=== PATIENT | female | born 1955 | race African-American/Black ===

== ENCOUNTER 2017-08-06 10:54 | Inpatient (IN) | payer MEDICARE, MEDICAID ==
[~2017-08-06] VITALS: Ht 175.3 cm; Wt 93.4 kg
[~2017-08-06 10:54] MED LIST: FOLI-43 PO; HYDR-2412 PO; INSU100C11 SQ; MIRT15TA PO; OMEP20CA4 PO; OXYC-662 PO; ZOLP5TAB8 PO; [UNRECOGNIZED DRUG - CODE] PR
[2017-08-06] MEDS ORDERED: SODIUM CHLORIDE 0.9% 10ML VIAL ONE (11:44)
[2017-08-06] MEDS ORDERED: IOHEXOL-300 100 ML BOTTLE ONE (11:44)
[2017-08-06] MEDS ORDERED: SODIUM CHLORIDE 0.9% 1,000 ML IV ONE (14:21)
[2017-08-06] MEDS ORDERED: FAMOTIDINE 20MG/2ML VIAL IV STA (14:21)
[2017-08-06] MEDS ORDERED: ONDANSETRON HCL 4MG/2ML VIAL IV STA (14:21)
[2017-08-06 14:42] LABS: HEMATOCRIT. 41.9 % (36.0-48.0); HEMOGLOBIN. 13.6 g/dL (12.0-16.0); MEAN CORPUSCULAR HEMOGLOBIN 27.1 pg (28.0-32.0); MEAN CORPUSCULAR VOLUME 83.7 fL (81.0-99.0); PLATELET 165 x1000/uL (130-400); RED BLOOD CELL COUNT 5.01 mill/uL (4.2-5.4); RED CELL DISTRIBUTION WIDTH 17.8 % (11.6-14.6)
[2017-08-06 14:48] LABS: CHLORIDE 106 mEq/L (98-107)
[2017-08-06 14:56] LABS: CARBON DIOXIDE 24 mEq/L (21-32)
[2017-08-06 14:58] LABS: CLARITY URINE CLOUDY (CLEAR); COLOR URINE DARK YELLOW (YELLOW); GLUCOSE URINE NEGATIVE (NEGATIVE); KETONES URINE TRACE (NEGATIVE); LEUKOCYTE ESTERASE URINE NEGATIVE (NEGATIVE); NITRITE URINE NEGATIVE (NEGATIVE); OCCULT BLOOD URINE NEGATIVE (NEGATIVE); PH URINE 5.5 (4.5-8.0); PROTEIN URINE 1+ (NEGATIVE); SPECIFIC GRAVITY URINE 1.029 (1.005-1.030)
[2017-08-06 15:23] LABS: PLATELET ESTIMATE NORMAL
[2017-08-06] MEDS ORDERED: PANTOPRAZOLE SODIUM 40 MG/VIAL IV ONE (22:00)
[2017-08-06 22:51] VITALS: BP 112/66
[2017-08-06 23:59] VITALS: BP 113/56
[2017-08-07] MEDS ORDERED: ACETAMINOPHEN 325MG TABLET PO PRN
[2017-08-07] MEDS ORDERED: ONDANSETRON HCL 4MG/2ML VIAL IV PRN
[2017-08-07] MEDS ORDERED: ZOLPIDEM TARTRATE 5MG TABLET PO PRN
[2017-08-07] MEDS ORDERED: DEXTROSE 50% WATER 50ML SYRINGE IV PRN (00:15)
[2017-08-07 04:00] VITALS: BP 122/61
[2017-08-07] MEDS: BLOOD SUGAR DIAGNOSTIC STRIP TEST SCH ×4 (06:49→21:00)
[2017-08-07] MEDS: INSULIN LISPRO 100 UNITS/ML SUBCUT SCH ×4 (06:49→21:00)
[2017-08-07 07:02] LABS: HEMATOCRIT. 38.9 % (36.0-48.0); HEMOGLOBIN. 12.6 g/dL (12.0-16.0); MEAN CORPUSCULAR HEMOGLOBIN 27.4 pg (28.0-32.0); MEAN CORPUSCULAR VOLUME 84.4 fL (81.0-99.0); MEAN PLATELET VOLUME 8.7 fl (7.4-10.4); PLATELET 163 x1000/uL (130-400); RED BLOOD CELL COUNT 4.61 mill/uL (4.2-5.4); RED CELL DISTRIBUTION WIDTH 17.9 % (11.6-14.6)
[2017-08-07 07:56] LABS: CARBON DIOXIDE 25 mEq/L (21-32); CHLORIDE 107 mEq/L (98-107); HDL CHOLESTEROL 37 mg/dL (40-59); LDL CHOLESTEROL 71 mg/dL (5-100); PHOSPHORUS 3.8 mg/dL (2.5-4.9); TOTAL IRON BINDING CAPACITY 422 ug/dL (250-450)
[2017-08-07 08:00] VITALS: BP 107/67
[2017-08-07 08:02] LABS: T4 FREE 1.01 ng/dL (0.76-1.46)
[2017-08-07] MEDS: LOSARTAN POTASSIUM 50 MG TABLET PO SCH ×2 (09:00→21:37)
[2017-08-07 10:42] LABS: CLARITY URINE CLEAR (CLEAR); COLOR URINE YELLOW (YELLOW); GLUCOSE URINE NEGATIVE (NEGATIVE); KETONES URINE NEGATIVE (NEGATIVE); LEUKOCYTE ESTERASE URINE NEGATIVE (NEGATIVE); NITRITE URINE NEGATIVE (NEGATIVE); OCCULT BLOOD URINE TRACE (NEGATIVE); PH URINE 5.5 (4.5-8.0); PROTEIN URINE NEGATIVE (NEGATIVE); SPECIFIC GRAVITY URINE 1.029 (1.005-1.030); UROBILINOGEN URINE 0.2 E.U./dL (0.2-1.0)
[2017-08-07] MEDS ORDERED: OXYCODONE HCL 5MG TABLET PO PRN (11:00)
[2017-08-07 12:30] VITALS: BP 127/69
[2017-08-07 16:00] VITALS: BP 112/60
[2017-08-07 19:28] VITALS: BP 143/65
[2017-08-07] MEDS ORDERED: ATORVASTATIN CALCIUM 20MG TABLET PO SCH (21:00)
[2017-08-07] MEDS: OMEPRAZOLE 20MG CAPSULE EXTENDED RELEASE PO SCH (21:37)
[2017-08-07] MEDS ORDERED: INSULIN DETEMIR UD 100 UNITS/ML SYR SUBCUT SCH (22:00)
[2017-08-07 22:50] LABS: ATYPICAL LYMPHOCYTES 3; PLATELET ESTIMATE NORMAL
[2017-08-08] VITALS: BP 122/61
[2017-08-08 04:00] VITALS: BP 108/57
[2017-08-08] MEDS: BLOOD SUGAR DIAGNOSTIC STRIP TEST SCH ×2 (06:29→12:10)
[2017-08-08] MEDS: INSULIN LISPRO 100 UNITS/ML SUBCUT SCH ×2 (06:29→12:18)
[2017-08-08] MEDS: OMEPRAZOLE 20MG CAPSULE EXTENDED RELEASE PO SCH (06:39)
[2017-08-08 08:00] VITALS: BP 123/57
[2017-08-08] MEDS: LOSARTAN POTASSIUM 50 MG TABLET PO SCH (09:00)
[2017-08-08 11:43] VITALS: BP 120/64
[2017-08-08 12:00] VITALS: BP 120/64
== END 2017-08-08 13:24 | disposition home or self-care (01) | DRG 392 ==
LOC: ER 13:32 → 8WST 16:12 → EDBEDREQ 16:12 → ENRESERV 19:43
PROVIDERS: ADMIT Internal Medicine; ATTEND Internal Medicine
DX: R19.7 Diarrhea, unspecified (principal); K76.0 Fatty (change of) liver, not elsewhere classified; I10 Essential (primary) hypertension; E11.9 Type 2 diabetes mellitus without complications; D64.9 Anemia, unspecified; N20.0 Calculus of kidney; K57.90 Diverticulosis of intestine, part unspecified, without perforation or abscess without bleeding; F17.200 Nicotine dependence, unspecified, uncomplicated; G89.29 Other chronic pain; Z90.49 Acquired absence of other specified parts of digestive tract; Z90.710 Acquired absence of both cervix and uterus; F11.988 Opioid use, unspecified with other opioid-induced disorder
CPT/HCPCS: 36415; 74177; 76700; 76856; 80053; 80061; 80076; 81001; 82248; 82270; 82962; 83540; 83550; 83690; 83735; 84100; 84439; 84443; 84481; 84550; 85025; 87086; 87493; 93970; 96361; 96374; 96375; 99285; A4216; C1893; J1815; J2405; J3490; J7030; Q9967